=== PATIENT | female | born 1990 | race African-American/Black ===

== ENCOUNTER 2018-10-12 16:21 | Emergency (ER) | payer MEDICAID ==
[~2018-10-12] VITALS: Ht 165.1 cm; Wt 86.2 kg
[2018-10-12] MEDS ORDERED: Ampicillin/Sulbactam Sod 3 GM in NS 110 ML IVPB ONE (17:00)
[2018-10-12] MEDS ORDERED: Acetaminophen 500mg (ES) tab ORAL ONE (17:00)
[2018-10-12] MEDS ORDERED: Dexamethasone 4mg/ml vial IVP ONE (17:00)
[2018-10-12 17:01] VITALS: BP 88/66
[2018-10-12 17:53] VITALS: BP 115/70
[2018-10-12] MEDS ORDERED: TYLENOL EXTRA500 MG ORAL (18:42)
[2018-10-12] MEDS ORDERED: AUGMENTIN 875-1 EAC1 ORAL (18:42)
[2018-10-12 18:43] VITALS: BP 102/68
[2018-10-12 18:44] VITALS: BP 102/68
--- NOTE | 2018-10-12 19:59 | Emergency Room Report ---
History of Present Illness General Chief Complaint: Upper Respiratory Illness Source: Patient Present Illness HPI 28-year-old female presents to ED complaining of sore throat 3 days. Pain is dull, 8 out of 10, nonradiating. Denies cough. Per triage patient has a fever. Denies sick contacts or recent travel. No other aggravating relieving factors. Denies any other associated symptoms Allergies: Coded Allergies: No Known Allergies (Unverified , 10/12/18) Patient History Last Menstrual Period: 09/2018 Now: No Immunizations: UTD Reviewed Nursing Documentation: PMH: Agreed; PSxH: Agreed Nursing Documentation-PMH Past Medical History: No Stated History Review of Systems All Other Systems: negative except mentioned in HPI Physical Exam Vital Signs Date Time Temp Pulse Resp B/P (MAP) Pulse Ox O2 Delivery O2 Flow Rate FiO2 10/12/18 16:26 100.2 137 20 131/79 94 Room Air Sp02 EP Interpretation: reviewed, normal General Appearance: no apparent distress, alert, GCS 15, non-toxic Head: normocephalic Eyes: bilateral eye normal inspection, bilateral eye PERRL ENT: hearing grossly normal, no angioedema, normal voice, TMs + canals normal, pharyngeal erythema, tonsillar exudate Neck: full range of motion, no meningismus, no bony tend, supple/symm/no masses Respiratory: chest non-tender, lungs clear, normal breath sounds, speaking full sentences Cardiovascular #1: normal inspection Gastrointestinal: normal inspection Rectal: deferred Genitourinary: no CVA tenderness, ext genitalia/vag normal Musculoskeletal: back normal Neurologic: alert, oriented x3, responsive, motor strength/tone normal, sensory intact, speech normal Psychiatric: normal inspection Skin: normal inspection Lymphatic: normal inspection Medical Decision Making Diagnostic Impression: Primary Impression: Pharyngitis Qualified Codes: J02.9 - Acute pharyngitis, unspecified ER Course Hospital Course 28 yo F presents with sore throat, fever Differential diagnoses include: URI, pharyngitis, otitis media Clinical course Patient placed on stretcher. After initial history, physical exam reveals a female in no acute distress. Bilateral TM unremarkable. There is pharyngeal erythema w/ tonsillar exudates. Noted lymphadenopathy. Clinical findings consistent with pharyngitis. Patient is febrile, tachycardic. Given given Tylenol, Decadron, IV fluids and Unasyn here. On reassessment patient feels better. discussed findings with patient. We will discharge with antibiotics. Safe for discharge and close outpatient follow -up Diagnosis - pharyngitis Stable and discharged home with prescriptions for tylenol, augmentin. Instructed to followup with PMD. return to ED if symptoms recur or worsen Last Vital Signs Date Time Temp Pulse Resp B/P (MAP) Pulse Ox O2 Delivery O2 Flow Rate FiO2 10/12/18 18:44 99.7 109 20 102/68 97 Room Air Status: improved Disposition: HOME, SELF-CARE Condition: Stable Scripts Acetaminophen* (TYLENOL EXTRA STRENGTH*) 500 Mg Tablet 500 MG ORAL Q8H PRN for Prn Headache/Temp > 101, #30 TAB 0 Refills Prov: Dionisio Rodriugez MD 10/12/18 Amoxicillin/Potassium Clav 875-125* (AUGMENTIN 875-125 TABLET*) 1 Each Tablet 1 TAB ORAL TWICE A DAY, #14 TAB Prov: Dionisio Rodriguez MD 10/12/18 Patient Instructions: Pharyngitis, Keid-td-Vqvv Dionisio Rodriguez MD Oct 12, 2018 19:59
== END 2018-10-12 18:44 | disposition home or self-care (01) ==
LOC: EMR 16:55
DX: J02.9 Acute pharyngitis, unspecified (principal); R50.9 Fever, unspecified
CPT/HCPCS: 96365; 96375; 99284; J0295; J1100